=== PATIENT | male | born 1955 | race African-American/Black ===

== ENCOUNTER 2017-05-18 22:03 | Observation (INO) | payer OTHER ==
[~2017-05-18] VITALS: Ht 185.4 cm; Wt 90.0 kg
[2017-05-18 22:04] VITALS: BP 153/74; PULSE 79; RESP 16; TEMP 98; O2SAT 99
[2017-05-18] MEDS ORDERED: ASPIRIN 81 MG CHEW TAB PO ONE (22:45)
[2017-05-18] MEDS ORDERED: SODIUM CHLORIDE 0.9% FLUSH 10 ML FLUSH IVF PRN (22:45)
[2017-05-18] MEDS ORDERED: SODIUM CHLORID 0.9% 500 ML INJ 500 ML IV ONE (22:45)
[2017-05-18] MEDS ORDERED: MORPHINE SULFATE 2 MG/ML INJ IV PUSH ONE (22:45)
--- NOTE | 2017-05-18 22:46 | PD ---
HPI Chief Complaint: Chest Pain Time Seen by Provider: 22:43 Travel History International Travel<30 days: No Contact w/Intl Traveler<30days: No Traveled to known affect area: No History of Present Illness HPI 61-year-old Afro-[place]azi male normally seen by the [place], presents the emergency department via POV with substernal chest pain and tightness which started roughly 2 hours prior to arrival. Patient states he takes baby aspirin daily, and has had chest pain in the past but denies cardiac issues. Patient states this occurred while at rest watching the football [employer] afternoon. He states is continued and currently as a 6 out of 10 pain. He denies nausea, vomiting, or back pain. He denies diaphoresis. Patient states he recently moved here to the [facility] from [place] several months ago. He has no known drug allergies. [facility] Past Medical History Medical History: Denies Significant Hx ?: Not Past Surgical History Abdominal Surgery: Yes (HERNIA SURGERY ) Other Surgery: Yes (KNEE SURGERY ) Social History Alcohol Use: No Tobacco Use: No Substance Use: No Allergies-Medications (Allergen,Severity, Reaction): Coded Allergies: No Known Allergies (Verified Allergy, Unknown, 05/18/17) Reported Meds & Prescriptions Reported Meds & Active Scripts Active No Active Prescriptions or Reported Medications Review of Systems Except as stated in HPI: all other systems reviewed are Neg General / Constitutional: No: Fever, Chills Eyes: No: Visual changes HENT: No: Headaches Cardiovascular: Positive: Chest Pain or Discomfort, Other (chest tightness), No : Palpitations, Irregular Rhythm, Tachycardia, Diaphoresis, Syncope, Dyspnea on exertion, Varicosities, Edema Respiratory: No: Cough, Shortness of Breath, Wheezing Gastrointestinal: No: Nausea, Vomiting, Diarrhea, Abdominal Pain Genitourinary: No: Dysuria Musculoskeletal: No: Pain Skin: No Rash Neurologic: No: Weakness Psychiatric: No: Depression Endocrine: No: Polydipsia Hematologic/Lymphatic: No: Easy Bruising Physical Exam Narrative GENERAL: The patient appears mildly anxious. SKIN: Warm and dry. Normal color. Normal turgor. No diaphoresis HEAD: Atraumatic. Normocephalic. EYES: Pupils equal and round. No scleral icterus. No injection or drainage. ENT: No nasal bleeding or discharge. Mucous membranes pink and moist. Pharynx is clear. Airway is patent. NECK: Trachea midline. No JVD. Supple and nontender. CARDIOVASCULAR: Regular rate and rhythm. No murmurs gallops or rubs appreciated. RESPIRATORY: No accessory muscle use. Clear to auscultation. Breath sounds equal bilaterally. GASTROINTESTINAL: Abdomen soft, non-tender, nondistended. Hepatic and splenic margins not palpable. MUSCULOSKELETAL: Extremities without clubbing, cyanosis, or edema. No obvious deformities. NEUROLOGICAL: Awake and alert. No obvious cranial nerve deficits. Motor grossly within normal limits. Five out of 5 muscle strength in the arms and legs. Normal speech. PSYCHIATRIC: Appropriate mood and affect; insight and judgment normal. Data Data Last Documented VS Vital Signs Date Time Temp Pulse Resp B/P (MAP) Pulse Ox O2 Delivery O2 Flow Rate FiO2 05/18/17 22:04 98.0 79 16 153/74 (100) 99 Room Air Orders Orders Electrocardiogram (05/18/17 22:43) Ckmb (Isoenzyme) Profile (05/18/17 22:43) Complete Blood Count With Diff (05/18/17 22:43) Comprehensive Metabolic Panel (05/18/17 22:43) Magnesium (Mg) (05/18/17 22:43) Prothrombin Time / Inr (Pt) (05/18/17 22:43) Act Partial Throm Time (Ptt) (05/18/17 22:43) Troponin I (05/18/17 22:43) Chest, Single Ap (05/18/17 22:43) Ecg Monitoring (05/18/17 22:43) Bilateral Bp Monitoring (05/18/17 22:43) Iv Access Insert/Monitor (05/18/17 22:43) Oximetry (05/18/17 22:43) Oxygen Administration (05/18/17 22:43) Aspirin Chew (Aspirin Chew) (05/18/17 22:45) Sodium Chloride 0.9% Flush (Ns Flush) (05/18/17 22:45) Nitroglycerin Sl (Nitrostat Sl) (05/18/17 22:45) Sodium Chlorid 0.9% 500 Ml Inj (Ns 500 M (05/18/17 22:45) Morphine Inj (Morphine Inj) (05/18/17 22:45) CKMB (05/18/17 23:00) CKMB% (05/18/17 23:00) Admit Order (Ed Use Only) (05/19/17 00:49) Labs Laboratory Tests Test 05/18/17 23:00 White Blood Count 10.0 TH/MM3 Red Blood Count 4.23 MIL/MM3 Hemoglobin 13.5 GM/DL Hematocrit 39.3 % Mean Corpuscular Volume 93.0 FL Mean Corpuscular Hemoglobin 31.9 PG Mean Corpuscular Hemoglobin Concent 34.3 % Red Cell Distribution Width 12.1 % Platelet Count 246 TH/MM3 Mean Platelet Volume 8.1 FL Neutrophils (%) (Auto) 63.3 % Lymphocytes (%) (Auto) 24.7 % Monocytes (%) (Auto) 8.1 % Eosinophils (%) (Auto) 3.2 % Basophils (%) (Auto) 0.7 % Neutrophils # (Auto) 6.3 TH/MM3 Lymphocytes # (Auto) 2.5 TH/MM3 Monocytes # (Auto) 0.8 TH/MM3 Eosinophils # (Auto) 0.3 TH/MM3 Basophils # (Auto) 0.1 TH/MM3 CBC Comment DIFF FINAL Differential Comment Prothrombin Time 10.3 SEC Prothromb Time International Ratio 1.0 RATIO Activated Partial Thromboplast Time 26.2 SEC Blood Urea Nitrogen 12 MG/DL Creatinine 1.04 MG/DL Random Glucose 93 MG/DL Total Protein 8.5 GM/DL Albumin 4.1 GM/DL Calcium Level 9.4 MG/DL Magnesium Level 2.2 MG/DL Alkaline Phosphatase 78 U/L Aspartate Amino Transf (AST/SGOT) 28 U/L Alanine Aminotransferase (ALT/SGPT) 41 U/L Total Bilirubin 0.3 MG/DL Sodium Level 139 MEQ/L Potassium Level 4.1 MEQ/L Chloride Level 103 MEQ/L Carbon Dioxide Level 28.8 MEQ/L Anion Gap 7 MEQ/L Estimat Glomerular Filtration Rate 73 ML/MIN Total Creatine Kinase 346 U/L Creatine Kinase MB 2.9 NG/ML Creatine Kinase MB % 0.8 % Troponin I LESS THAN 0.02 NG/ML MDM Medical Decision Making Medical Screen Exam Complete: Yes Emergency Medical Condition: Yes Differential Diagnosis Chest pain. Chest tightness. Cardiac syndrome. Angina. Narrative Course Patient is medically stable at time of exam. EKG shows normal sinus rhythm with flipped T waves in V1 with possible slight ST elevations and V2 and V3. This was reviewed with Dr. Martinez as Dr. Sarkar was putting in in a central line. She felt the ST changes were nonspecific Cardiac protocol is initiated. Labs ordered including CBC, CMP, cardiac panel, coagulation studies. IV access is obtained patient is given a 500 mL normal saline bolus. Patient is given 324 mg chewable aspirin by mouth. Patient is given 2 mg morphine IV as well as nitroglycerin 0.4 mg sublingual 3. Chest x-ray is ordered. 2300 hrs., care of the patient is turned over to Dr. Sarkar, who will determine the final disposition of the patient. Scripts No Active Prescriptions or Reported Meds Condition: Stable Jose Carlos Bennett May 18, 2017 22:46
[2017-05-18] MEDS: NITROGLYCERIN 0.4 MG SL 25 TABS/BTL SL SCH ×2 (22:50→22:55)
--- NOTE | 2017-05-18 22:58 | RADRPT ---
EXAM DATE/TIME: 05/18/2017 22:47 [facility] COMPARISON: No previous studies available for comparison. INDICATIONS : Left sided chest pain for one day. MEDICAL HISTORY : None. SURGICAL HISTORY : None. ENCOUNTER: Initial ACUITY: 1 day PAIN SCORE: 6/10 LOCATION: Left chest FINDINGS: A single view of the chest demonstrates the lungs to be symmetrically aerated without evidence of mas s, infiltrate or effusion. The cardiomediastinal contours are unremarkable. Osseous structures are intact. CONCLUSION: No evidence of acute cardiopulmonary disease. Samuel Geiger MD on May 18, 2017 at 22:55 Board Certified Radiologist. This report was verified electronically.
--- NOTE | 2017-05-18 23:02 | PD ---
Data Data Last Documented VS Vital Signs Date Time Temp Pulse Resp B/P (MAP) Pulse Ox O2 Delivery O2 Flow Rate FiO2 05/18/17 22:04 98.0 79 16 153/74 (100) 99 Room Air Orders Orders Electrocardiogram (05/18/17 22:43) Ckmb (Isoenzyme) Profile (05/18/17 22:43) Complete Blood Count With Diff (05/18/17 22:43) Comprehensive Metabolic Panel (05/18/17 22:43) Magnesium (Mg) (05/18/17 22:43) Prothrombin Time / Inr (Pt) (05/18/17 22:43) Act Partial Throm Time (Ptt) (05/18/17 22:43) Troponin I (05/18/17 22:43) Chest, Single Ap (05/18/17 22:43) Ecg Monitoring (05/18/17 22:43) Bilateral Bp Monitoring (05/18/17 22:43) Iv Access Insert/Monitor (05/18/17 22:43) Oximetry (05/18/17 22:43) Oxygen Administration (05/18/17 22:43) Aspirin Chew (Aspirin Chew) (05/18/17 22:45) Sodium Chloride 0.9% Flush (Ns Flush) (05/18/17 22:45) Nitroglycerin Sl (Nitrostat Sl) (05/18/17 22:45) Sodium Chlorid 0.9% 500 Ml Inj (Ns 500 M (05/18/17 22:45) Morphine Inj (Morphine Inj) (05/18/17 22:45) CKMB (05/18/17 23:00) CKMB% (05/18/17 23:00) Admit Order (Ed Use Only) (05/19/17 00:49) Labs Laboratory Tests Test 05/18/17 23:00 White Blood Count 10.0 TH/MM3 Red Blood Count 4.23 MIL/MM3 Hemoglobin 13.5 GM/DL Hematocrit 39.3 % Mean Corpuscular Volume 93.0 FL Mean Corpuscular Hemoglobin 31.9 PG Mean Corpuscular Hemoglobin Concent 34.3 % Red Cell Distribution Width 12.1 % Platelet Count 246 TH/MM3 Mean Platelet Volume 8.1 FL Neutrophils (%) (Auto) 63.3 % Lymphocytes (%) (Auto) 24.7 % Monocytes (%) (Auto) 8.1 % Eosinophils (%) (Auto) 3.2 % Basophils (%) (Auto) 0.7 % Neutrophils # (Auto) 6.3 TH/MM3 Lymphocytes # (Auto) 2.5 TH/MM3 Monocytes # (Auto) 0.8 TH/MM3 Eosinophils # (Auto) 0.3 TH/MM3 Basophils # (Auto) 0.1 TH/MM3 CBC Comment DIFF FINAL Differential Comment Prothrombin Time 10.3 SEC Prothromb Time International Ratio 1.0 RATIO Activated Partial Thromboplast Time 26.2 SEC Blood Urea Nitrogen 12 MG/DL Creatinine 1.04 MG/DL Random Glucose 93 MG/DL Total Protein 8.5 GM/DL Albumin 4.1 GM/DL Calcium Level 9.4 MG/DL Magnesium Level 2.2 MG/DL Alkaline Phosphatase 78 U/L Aspartate Amino Transf (AST/SGOT) 28 U/L Alanine Aminotransferase (ALT/SGPT) 41 U/L Total Bilirubin 0.3 MG/DL Sodium Level 139 MEQ/L Potassium Level 4.1 MEQ/L Chloride Level 103 MEQ/L Carbon Dioxide Level 28.8 MEQ/L Anion Gap 7 MEQ/L Estimat Glomerular Filtration Rate 73 ML/MIN Total Creatine Kinase 346 U/L Creatine Kinase MB 2.9 NG/ML Creatine Kinase MB % 0.8 % Troponin I LESS THAN 0.02 NG/ML [facility] Medical Record Reviewed: Yes Supervised Visit with GILDA: No Interpretation(s) Last Impressions Chest X-Ray 05/18/17 2243 Signed Impressions: Service Date/Time: Thursday, May 18, 2017 22:47 - CONCLUSION: No evidence of acute cardiopulmonary disease. Samuel Geiger MD Narrative Course During the course of the patients emergency department visit, the patients history, examination, and differential diagnosis were reviewed with the patient. The patient was placed on a cardiac rehab nurse with oximetry and frequent blood pressure monitoring. The patient had IV access obtained and blood work sent for analysis. The patient's case was checked out to me by Jose Carlos, the physician assistant manager of operations. Please see his complete history and physical. The patient 's case is checked out to me at the conclusion of his shift. The patient presented with reports of chest pain/pressure. The patient had an EKG done on arrival that shows a sinus rhythm heart rate of 68, QRS duration is 95 ms, QTC 373 ms, no acute ST segment elevation is noted. T waves are inverted in V1. J- point elevation is noted in lead V2. No reciprocal ST segment depression to suggest an acute infarct. The patient was initially provided Zofran 4 mg IV, morphine 2 mg IV for pain, aspirin 324 milligrams, nitroglycerin sublingual every 5 minutes 3 when necessary chest pain. The patients laboratory studies were reviewed and remarkable for a CBC that is unremarkable, CMP is remarkable for a GFR 73, CPK 346, MB percent 0.8, troponin I less than 0.02, PT 10.3, PTT 26.2. Radiology studies were reviewed and remarkable for a chest x-ray that shows no acute cardiopulmonary disease. The patient was agreeable with the plan to proceed with admission to the chest pain center for rule out serial cardiac enzyme protocol followed by stress testing. The patients results were discussed with the patient, including the plan of care. I explained that further testing and/ or monitoring is indicated based on the patients history, examination, and/ or laboratory findings. Therefore, I recommended admission for additional evaluation. The patient expressed understanding and was agreeable with this plan. The patient was admitted to the hospital in stable condition and sent to a bed under the care of the chest pain center. Diagnosis Primary Impression: Chest pain, rule out acute myocardial infarction Admitting Information Admitting Physician Requests: Observation Scripts No Active Prescriptions or Reported Meds Condition: Stable Anna Sarkar MD May 18, 2017 23:02
[2017-05-18 23:15] LABS: AUTOMATED NEUTROPHIL # 6.3 TH/MM3 (1.8-7.7); BASOPHIL # 0.1 TH/MM3 (0-0.2); BASOPHIL % 0.7 % (0.0-2.0); EOSINOPHIL # 0.3 TH/MM3 (0-0.4); EOSINOPHIL % 3.2 % (0.0-4.0); HEMATOCRIT 39.3 % (39.0-51.0); HEMOGLOBIN 13.5 GM/DL (13.0-17.0); LYMPH % 24.7 % (9.0-44.0); LYMPHOCYTE # 2.5 TH/MM3 (1.0-4.8); MEAN CORPUSCULAR HEMOGLOBIN 31.9 PG (27.0-34.0); MEAN CORPUSCULAR HGB CONC 34.3 % (32.0-36.0); MEAN PLATELET VOLUME 8.1 FL (7.0-11.0); MONO % 8.1 % (0.0-8.0); MONOCYTE # 0.8 TH/MM3 (0-0.9); NEUT % 63.3 % (16.0-70.0); PLATELET COUNT 246 TH/MM3 (150-450); RED BLOOD COUNT 4.23 MIL/MM3 (4.50-5.90); RED CELL DISTRIBUTION WIDTH 12.1 % (11.6-17.2)
[2017-05-18 23:16] LABS: PROTHROMBIN TIME - PATIENT 10.3 SEC (9.8-11.6)
[2017-05-18 23:24] LABS: ALT (GPT) 41 U/L (12-78)
[2017-05-18 23:28] LABS: ALKALINE PHOSPHATASE 78 U/L (45-117); TOTAL BILIRUBIN ADULT 0.3 MG/DL (0.2-1.0); TOTAL PROTEIN 8.5 GM/DL (6.4-8.2); TROPONIN I LESS THAN 0.02 NG/ML (0.02-0.05)
[2017-05-18 23:29] LABS: ALBUMIN 4.1 GM/DL (3.4-5.0); AST (GOT) 28 U/L (15-37); BICARBONATE 28.8 MEQ/L (21.0-32.0); BLOOD UREA NITROGEN 12 MG/DL (7-18); CALCIUM 9.4 MG/DL (8.5-10.1); CHLORIDE 103 MEQ/L (98-107); CREATININE 1.04 MG/DL (0.60-1.30); GLOMERULAR FILTRATION RATE 73 ML/MIN (>89); GLUCOSE,RANDOM 93 MG/DL (74-106); MAGNESIUM 2.2 MG/DL (1.5-2.5); SODIUM (NA) 139 MEQ/L (136-145)
[2017-05-19] MEDS: NITROGLYCERIN 0.4 MG SL 25 TABS/BTL SL SCH (00:21)
[2017-05-19] MEDS ORDERED: ONDANSETRON HCL 4 MG/2 ML VIAL IV PUSH PRN (01:45)
[2017-05-19] MEDS ORDERED: ACETAMINOPHEN 500 MG CPLT PO PRN (01:45)
[2017-05-19] MEDS ORDERED: SODIUM CHLORIDE 0.9% FLUSH 10 ML FLUSH IV FLUSH PRN (01:45)
[2017-05-19 02:03] VITALS: BP 125/59; PULSE 67; RESP 18; O2SAT 99
[2017-05-19 03:10] LABS: TROPONIN I LESS THAN 0.02 NG/ML (0.02-0.05)
[2017-05-19 06:04] LABS: TROPONIN I LESS THAN 0.02 NG/ML (0.02-0.05)
[2017-05-19 06:30] VITALS: BP 137/63; PULSE 68; RESP 18; TEMP 98.1; O2SAT 98
[2017-05-19 06:31] VITALS: O2SAT 100
[2017-05-19 06:43] VITALS: BP 126/72; PULSE 73; RESP 18; O2SAT 100
[2017-05-19] MEDS ORDERED: MORPHINE SULFATE 2 MG/ML INJ IV PUSH ONE (08:00)
[2017-05-19] MEDS ORDERED: NITROGLYCERIN 0.4 MG SL 25 TABS/BTL SL PRN (08:45)
[2017-05-19] MEDS ORDERED: SODIUM CHLORIDE 0.9% FLUSH 10 ML FLUSH IV FLUSH SCH (09:00)
[2017-05-19] MEDS ORDERED: ASPIRIN 325 MG TAB PO SCH (09:00)
[2017-05-19 09:49] VITALS: BP 110/88; PULSE 83; RESP 16; O2SAT 99
--- NOTE | 2017-05-19 10:07 | HHI.HP ---
HPI Primary Care Physician [facility] Chief Complaint Chest pain History of Present Illness 61-year-old male without significant past medical history presents to emergency room for further evaluation of chest tightness. Onset yesterday afternoon while watching football. Location substernal. Characterized as tightness. Radiation to left arm, noting left arm to be "sore." Severity mild. Duration constant. Associated symptoms nausea. Denied vomiting, shortness breath, or dyspnea. No known precipitating or relieving factors. No recent injury or trauma. Denies similar pain in the past, however endorses sharp chest pain in the past. Seen and evaluated during each of these episodes with both times being non cardiac related. Recently moved from [place], [place] to [place]. Review of Systems General: No fatigue,weakness, fever, chills, or recent illness change in appetite. Has been his general state of health. HEENT: No CABAN, no vision changes, no nasal congestion or drainage, no dysphasia CV: Continues to have chest tightness as stated above. RESP: No SOB, cough, wheeze, or recent URI. GI: No nausea, vomiting, bowel changes : No dysuria, urgency, frequency EXT: No lower leg edema, no paraesthesias MS: No discomfort, change in ROM, injury, or trauma. NEURO: No difficulty with balance, LOC, motor/sensory deficits PSYCH: No anxiety, depression SKIN: No rashes, no concerning lesions Past Family Social History Allergies: Coded Allergies: No Known Allergies (Verified Allergy, Unknown, 05/18/17) Past Medical History Chronic back and bilateral knee pain Past Surgical History Hernia surgery, knee surgery Reported Medications Aspirin 81 mg daily Active Ordered Medications Current Medications Medications (Trade) Dose Ordered Sig/Loretta Route Start Time Stop Time Status Last Admin (NS Flush) 2 ml UNSCH PRN IV FLUSH 05/19/17 01:45 (NS Flush) 2 ml BID IV FLUSH 05/19/17 09:00 05/19/17 08:00 (Tylenol) 500 mg Q4H PRN PO 05/19/17 01:45 (Zofran Inj) 4 mg Q6H PRN IV PUSH 05/19/17 01:45 (Nitrostat Sl) 0.4 mg Q5M PRN SL 05/19/17 08:45 (Aspirin) 325 mg DAILY PO 05/19/17 09:00 05/19/17 09:48 Social History No known coronary artery disease, diabetes, hypertension, or hyperlipidemia. Lifelong nonsmoker. Denies any alcohol or illegal drug use. Disable . Past cardiac testing None Physical Exam Vital Signs Vital Signs Date Time Temp Pulse Resp B/P (MAP) Pulse Ox O2 Delivery O2 Flow Rate FiO2 05/19/17 09:49 83 16 110/88 (95) 99 05/19/17 06:43 73 18 126/72 (90) 100 Room Air 05/19/17 06:31 100 Room Air 05/19/17 06:31 98 Nasal Cannula 2.00 05/19/17 06:30 98.1 68 18 137/63 (87) 98 Room Air 05/19/17 02:03 67 18 125/59 (81) 99 Room Air 05/18/17 22:04 98.0 79 16 153/74 (100) 99 Room Air Physical Exam GENERAL: Alert WN, WD, NAD, pleasant, Sana male HEAD: NC, AT CV: RRR, without murmur, rub, gallop, no JVD, S1-S2 no S3-S4. Chest wall nontender with palpation. RESP: Clear lungs throughout bilateral, no crackles, wheeze, rhonchi, symmetrical chest rise, nonlabored, able to speak in full sentences ABD: Soft, NT, ND, no masses, positive bowel tones EXT: Pulses +24, no dependent edema MS: Normal tone 4 extremities, nontender, no obvious deformities, full range of motion NEURO: CN II through CN XII grossly intact, motor strength 5/5 PSYCH: A+O 3, pleasant affect, appropriate speech, mood, insight and judgment SKIN: Normal turgor, normal texture, no lesions, no rashes Laboratory Laboratory Tests Test 05/18/17 23:00 05/19/17 02:24 05/19/17 05:10 White Blood Count 10.0 Red Blood Count 4.23 Hemoglobin 13.5 Hematocrit 39.3 Mean Corpuscular Volume 93.0 Mean Corpuscular Hemoglobin 31.9 Mean Corpuscular Hemoglobin Concent 34.3 Red Cell Distribution Width 12.1 Platelet Count 246 Mean Platelet Volume 8.1 Neutrophils (%) (Auto) 63.3 Lymphocytes (%) (Auto) 24.7 Monocytes (%) (Auto) 8.1 Eosinophils (%) (Auto) 3.2 Basophils (%) (Auto) 0.7 Neutrophils # (Auto) 6.3 Lymphocytes # (Auto) 2.5 Monocytes # (Auto) 0.8 Eosinophils # (Auto) 0.3 Basophils # (Auto) 0.1 CBC Comment DIFF FINAL Differential Comment Prothrombin Time 10.3 Prothromb Time International Ratio 1.0 Activated Partial Thromboplast Time 26.2 Blood Urea Nitrogen 12 Creatinine 1.04 Random Glucose 93 Total Protein 8.5 Albumin 4.1 Calcium Level 9.4 Magnesium Level 2.2 Alkaline Phosphatase 78 Aspartate Amino Transf (AST/SGOT) 28 Alanine Aminotransferase (ALT/SGPT) 41 Total Bilirubin 0.3 Sodium Level 139 Potassium Level 4.1 Chloride Level 103 Carbon Dioxide Level 28.8 Anion Gap 7 Estimat Glomerular Filtration Rate 73 Total Creatine Kinase 346 300 283 Creatine Kinase MB 2.9 2.7 2.6 Creatine Kinase MB % 0.8 Troponin I LESS THAN 0.02 LESS THAN 0.02 LESS THAN 0.02 Result Diagram: 05/18/17229905/18/172299 Imaging Last 48 hours Impressions Chest X-Ray 05/18/172242 Signed Impressions: Service Date/Time: Thursday, May 18, 2017 22:47 - CONCLUSION: No evidence of acute cardiopulmonary disease. Samuel Geiger MD Course EKG NSR, normal axis, J point elevation V2 and minimal in V3, may represent early repolarization, otherwise no st t segment changes. Caprini VTE Risk Assessment Caprini VTE Risk Assessment: No/Low Risk (score <= 1) Caprini Risk Assessment Model Point Value = 1 Point Value = 2 Point Value = 3 Point Value = 5 Age 41-60 Minor surgery BMI > 25 kg/m2 Swollen legs Varicose veins or History of unexplained or recurrent spontaneous Oral contraceptives or hormone replacement Sepsis (< 1 month) Serious lung disease, including pneumonia (< 1 month) Abnormal pulmonary function Acute myocardial infarction Congestive heart failure (< 1 month) History of inflammatory bowel disease Medical patient at bed rest Age 61-74 Arthroscopic surgery Major open surgery (> 45 min) Laparoscopic surgery (> 45 min) Malignancy Confined to bed (> 72 hours) Immobilizing plaster cast Central venous access Age >= 75 History of VTE Family history of VTE Factor V Leiden Prothrombin [id number] Lupus anticoagulant Anticardiolipin antibodies Elevated serum homocysteine Heparin-induced thrombocytopenia Other congenital or acquired thrombophilia Stroke (< 1 month) Elective arthroplasty Hip, pelvis, or leg fracture Acute spinal cord injury (< 1 month) Prophylaxis Regimen Total Risk Factor Score Risk Level Prophylaxis Regimen 0-1 Low Early ambulation 2 Moderate Order ONE of the following: *Sequential Compression Device (SCD) *Heparin 5000 units SQ BID 3-4 Higher Order ONE of the following medications: *Heparin 5000 units SQ TID *Enoxaparin/Lovenox 40 mg SQ daily (WT < 150 kg, CrCl > 30 mL/min) *Enoxaparin/Lovenox 30 mg SQ daily (WT < 150 kg, CrCl > 10-29 mL/min) *Enoxaparin/Lovenox 30 mg SQ BID (WT < 150 kg, CrCl > 30 mL/min) AND/OR *Sequential Compression Device (SCD) 5 or more Highest Order ONE of the following medications: *Heparin 5000 units SQ TID (Preferred with Epidurals) *Enoxaparin/Lovenox 40 mg SQ daily (WT < 150 kg, CrCl > 30 mL/min) *Enoxaparin/Lovenox 30 mg SQ daily (WT < 150 kg, CrCl > 10-29 mL/min) *Enoxaparin/Lovenox 30 mg SQ BID (WT < 150 kg, CrCl > 30 mL/min) AND *Sequential Compression Device (SCD) Assessment and Plan Assessment and Plan #1 Atypical chest pain-admitted to chest pain center. Ruled out with 3 sets of EKG, cardiac enzymes, and monitored overnight. Seen and evaluated by Dr. Manfred Samuel. Proceed with Lexiscan. If cardiac testing unremarkable, plans to discharge home with follow up with his PCP. Patient is agreeable to plan of care. Zuri Vega May 19, 2017 10:07
[2017-05-19] MEDS ORDERED: REGADENOSON INJ 0.4 MG/5 ML SYR ONE (12:16)
--- NOTE | 2017-05-19 14:46 | RADRPT ---
EXAM DATE/TIME: 05/19/2017 11:47 [facility] COMPARISON: CHEST SINGLE AP, May 18, 2017, 22:47. INDICATIONS : Substernal chest pain. Angina. DOSE: 27.2 mCi Tc99m Myoview at stress. 8.8 mCi Tc99m Myoview at rest. 0.4 mg Lexiscan STRESS SYMPTOMS: Dyspnea and stomach pressure. EJECTION FRACTION: 63% MEDICAL HISTORY : None SURGICAL HISTORY : Inguinal hernia repair. ENCOUNTER: Initial ACUITY: 1 day PAIN SCALE: 8/10 LOCATION: Substernal chest TECHNIQUE: The patient underwent pharmacologic stress with infusion of prescribed dose. Continuous ECG tracing was monitored during stress. Gated SPECT imaging was performed after stress and conventional SPECT i maging was performed at rest. The examination was performed on a SPECT/CT scanner, both attenuation and non-corrected datasets were reviewed. FINDINGS: DISTRIBUTION: The maximum perfused segment at stress is in the anterior wall. PERFUSION STUDY: No fixed or reversible perfusion defect is identified. Left ventricular cavity appears within normal for size. GATED STUDY: There is intact wall motion and thickening without hypokinetic or dyskinetic segments. CONCLUSION: 1. No fixed or reversible perfusion defect is identified. 2. Normal left ventricle wall motion and ejection fraction. RISK CATEGORY: Low (<1% Annual Mortality Rate) Samuel Melara MD on May 19, 2017 at 14:32 Board Certified Radiologist. This report was verified electronically.
--- NOTE | 2017-05-19 14:50 | HHI.DCPOC ---
Discharge Care Plan Diagnosis: (1) Atypical chest pain Goals to Promote Your Health * To prevent worsening of your condition and complications * To maintain your health at the optimal level Directions to Meet Your Goals Take your medications as prescribed Follow your dietary instruction Follow activity as directed Keep your appointments as scheduled Take your immunizations and boosters as scheduled If your symptoms worsen call your PCP, if no PCP go to Urgent Care Center or Emergency Room Smoking is Dangerous to Your Health. Avoid second hand smoke Call the 24-hour hour crisis hotline for domestic abuse at Zuri Vega May 19, 2017 14:50
--- NOTE | 2017-05-19 14:57 | EKG ---
Date Performed: 05/19/2017 Time Performed: 08:48:26 PTAGE: 61 years EKG: Sinus rhythm NORMAL ECG PREVIOUS TRACING : 05/19/2017 06.26 Since previous tracing, no significant change noted DOCTOR: Manfred Samuel Interpretating Date/Time 05/19/2017 14:55:29
--- NOTE | 2017-05-19 14:58 | EKG ---
Date Performed: 05/19/2017 Time Performed: 06:26:42 PTAGE: 61 years EKG: Sinus rhythm NORMAL ECG PREVIOUS TRACING : 05/19/2017 05.08 \spt DOCTOR: Manfred Samuel Interpretating Date/Time 05/19/2017 14:57:11
--- NOTE | 2017-05-19 14:59 | EKG ---
Date Performed: 05/19/2017 Time Performed: 05:08:40 PTAGE: 61 years EKG: Sinus rhythm POSSIBLE LEFT ATRIAL ENLARGEMENT BORDERLINE ECG PREVIOUS TRACING : 05/19/2017 02.15 Since previous tracing, no significant change noted DOCTOR: Manfred Samuel Interpretating Date/Time 05/21/2017 07:42:58
--- NOTE | 2017-05-19 15:01 | EKG ---
Date Performed: 05/19/2017 Time Performed: 02:15:49 PTAGE: 61 years EKG: Sinus rhythm BORDERLINE ECG PREVIOUS TRACING : 05/18/2017 22.46 Since previous tracing, no significant change noted DOCTOR: Manfred Samuel Interpretating Date/Time 05/19/2017 14:59:13
--- NOTE | 2017-05-19 15:12 | EKG ---
Date Performed: 05/18/2017 Time Performed: 22:46:16 PTAGE: 61 years EKG: Sinus rhythm POSSIBLE LEFT ATRIAL ENLARGEMENT BORDERLINE ECG NO PREVIOUS TRACING DOCTOR: Manfred Samuel Interpretating Date/Time 05/19/2017 15:10:58
[2017-05-19 15:27] VITALS: BP 134/59; PULSE 82; RESP 18; TEMP 97.7; O2SAT 99
--- NOTE | 2017-05-19 15:28 | TR ---
Date Performed: 05/19/2017 Time Performed: 12:22:16 DOCTOR: Manfred Samuel DRUG LIST: CLINICAL HISTORY: REASON FOR TEST: REASON FOR ENDING: OBSERVATION: CONCLUSION: Lexiscan stress test was performed under standard four minute protocol. Radionuclid e was injected one minute prior to ending the test. No electrocardiographic abormalities were present to suggest ischemia. Nuclear imaging and interpretation are pending. COMMENTS:
== END 2017-05-19 18:01 | disposition home or self-care (01) ==
LOC: NEPE 22:03 → NEDA 05-19 00:50 → NEDH 05-19 07:16 → NEPGCP 05-19 10:44
PROVIDERS: ADMIT Internal Medicine Interventional Cardiology; ATTEND Internal Medicine Interventional Cardiology
DX: R07.89 Other chest pain (principal); R06.00 Dyspnea, unspecified; R11.0 Nausea; I20.9 Angina pectoris, unspecified; M54.9 Dorsalgia, unspecified; M25.561 Pain in right knee; M25.562 Pain in left knee; G89.29 Other chronic pain; Z79.82 Long term (current) use of aspirin
CPT/HCPCS: 71045; 78452; 80053; 82550; 82552; 83735; 84484; 85025; 85610; 85730; 93005; 93017; 96374; 96376; 99285; A9502; G0378; J2270; J2785; J7040

== ENCOUNTER 2018-04-21 09:57 | Observation (INO) ==
--- NOTE | 2018-04-21 10:22 | ED ---
HPI General Chief Complaint: Chest Pain Stated Complaint: Cardiac Time Seen by Provider: 04/21/18 10:00 Source: patient Mode of arrival: EMS Limitations: no limitations History of Present Illness HPI narrative: 62-year-old male presents by ambulance with intermittent chest pain. He was given 1 nitroglycerin in route and is currently pain-free. He states that he has had heart blockages before but never had to have a stent. He states his prior workup is here but he does not know what it is. He presents by ambulance and was called a cardiac alert given mild elevation in his anterior leads. He denies other concurrent complaints. Pain is currently resolved. Quality was pressure-like. He denies associated symptoms. [facility] and does not have a rn tele. Related Data Home Medications Medication Instructions Recorded Confirmed Unable to Obtain Home Meds 04/21/18 04/21/18 Allergies Allergy/AdvReac Type Severity Reaction Status Date / Time No Known Allergies Allergy Verified 04/21/18 10:05 Review of Systems ROS: all other systems reviewed are negative [facility] Medical History Medical History Anxiety (Acute) Chest pain (Acute) Depression (Acute) Surgical History Surgical History Hx of cardiac cath (Acute) Social History Social History Substance History: No History of Abuse Smoking Status: Never smoker How Often Do You Have a Drink Containing Alcohol: Never Recent Travel in [facility] within the Last 8 Weeks: No Recent Out of Country Travel within the Last 8 Weeks: No Immunization History Tetanus Immunization: Unsure Exam Narrative Exam Narrative: GENERAL: 62-year-old male in no apparent distress SKIN: Focused skin assessment warm/dry. HEAD: Atraumatic. Normocephalic. EYES: Pupils equal and round. No scleral icterus. No injection or drainage. ENT: No nasal bleeding or discharge. Mucous membranes pink and moist. NECK: Trachea midline. No JVD. CARDIOVASCULAR: Regular rate and rhythm. No murmur appreciated. RESPIRATORY: No accessory muscle use. Clear to auscultation. Breath sounds equal bilaterally. GASTROINTESTINAL: Abdomen soft, non-tender, nondistended. MUSCULOSKELETAL: No obvious deformities. No clubbing. No cyanosis. NEUROLOGICAL: Awake and alert. Motor grossly within normal limits. Normal speech. PSYCHIATRIC: Appropriate mood and affect; insight and judgment normal. Course Reevaluation(s) Reevaluation #1: patient updated and agrees to admit Consultations Consultation #1: Dr. Carver's agrees no STEMI alert with current EKG and pain-free , more repolarization like Consultation #2: dr aponte states to admit to [facility] Initial Documented Vital Signs Temperature 97.7 F 04/21/18 09:59 Pulse Rate 73 04/21/18 09:59 Respiratory Rate 18 04/21/18 09:59 Blood Pressure 140/75 04/21/18 09:59 Pulse Oximetry 100 04/21/18 09:59 Last Documented Vital Signs Temperature 97.7 F 04/21/18 09:59 Pulse Rate 63 04/21/18 12:01 Respiratory Rate 18 04/21/18 12:01 Blood Pressure 136/68 04/21/18 12:01 Pulse Oximetry 99 04/21/18 12:01 Medical Decision Making [facility] Narrative Medical decision making narrative: We will check blood work, EKG, chest x-ray and reevaluate. Currently pain-free Medical Screen Exam Complete: Yes Emergency Medical Condition: Yes Differential Diagnosis Differential Diagnosis: MO, gastritis, musculoskeletal, pneumothorax Lab Data Lab results reviewed: Yes I reviewed the patient's lab results. Result diagrams: 04/21/18 10:05 04/21/18 10:05 Lab Results 04/21/18 04/21/18 04/21/18 Range/Units 10:05 10:05 10:05 WBC 7.8 (4.0-11.0) th/mm3 RBC 4.30 L (4.50-5.90) mil/mm3 Hgb 13.9 (13.0-17.0) gm/dL Hct 40.9 (39.0-51.0) % MCV 95.1 (80.0-100.0) fL MCH 32.3 (27.0-34.0) pg MCHC 34.0 (32.0-36.0) % RDW 12.4 (11.6-17.2) % Plt Count 220 (150-450) th/mm3 MPV 8.3 (7.0-11.0) fL Neut % (Auto) 60.6 (16.0-70.0) % Lymph % (Auto) 26.5 (9.0-44.0) % [place] % (Auto) 8.4 H (0.0-8.0) % Eos % (Auto) 3.7 (0.0-4.0) % Baso % (Auto) 0.8 (0.0-2.0) % Neut # (Auto) 4.7 (1.8-7.7) th/mm3 Lymph # (Auto) 2.1 (1.0-4.8) th/mm3 [place] # (Auto) 0.7 (0.0-0.9) th/mm3 Eos # (Auto) 0.3 (0.0-0.4) th/mm3 Baso # (Auto) 0.1 (0.0-0.2) th/mm3 WBC Differential . Differential Comment Auto diff final PT 16.9 H (9.8-11.6) sec INR 1.7 Ratio APTT 55.7 H (23.4-31.7) sec Sodium (136-145) meq/L Potassium (3.5-5.1) meq/L Chloride (98-107) meq/L Carbon Dioxide (21.0-32.0) meq/L Anion Gap (5-15) meq/L BUN (7-18) mg/dL Creatinine (0.60-1.30) mg/dL Estimated GFR (>89) mL/min Random Glucose (74-106) mg/dL Calcium (8.5-10.1) mg/dL Magnesium (1.5-2.5) mg/dL Total Bilirubin (0.2-1.0) mg/dL AST (15-37) U/L ALT (12-78) U/L Alkaline Phosphatase (45-117) U/L Total Creatine Kinase (39-308) U/L CK-MB (CK-2) (0.5-3.6) ng/mL Troponin I (0.02-0.05) ng/mL B-Natriuretic Peptide 9 (0-100) pg/mL Total Protein (6.4-8.2) g/dL Albumin (3.4-5.0) g/dL 04/21/18 Range/Units 10:05 WBC (4.0-11.0) th/mm3 RBC (4.50-5.90) mil/mm3 Hgb (13.0-17.0) gm/dL Hct (39.0-51.0) % MCV (80.0-100.0) fL MCH (27.0-34.0) pg MCHC (32.0-36.0) % RDW (11.6-17.2) % Plt Count (150-450) th/mm3 MPV (7.0-11.0) fL Neut % (Auto) (16.0-70.0) % Lymph % (Auto) (9.0-44.0) % [place] % (Auto) (0.0-8.0) % Eos % (Auto) (0.0-4.0) % Baso % (Auto) (0.0-2.0) % Neut # (Auto) (1.8-7.7) th/mm3 Lymph # (Auto) (1.0-4.8) th/mm3 [place] # (Auto) (0.0-0.9) th/mm3 Eos # (Auto) (0.0-0.4) th/mm3 Baso # (Auto) (0.0-0.2) th/mm3 WBC Differential Differential Comment PT (9.8-11.6) sec INR Ratio APTT (23.4-31.7) sec Sodium 141 (136-145) meq/L Potassium 4.1 (3.5-5.1) meq/L Chloride 105 (98-107) meq/L Carbon Dioxide 31.7 (21.0-32.0) meq/L Anion Gap 4 L (5-15) meq/L BUN 9 (7-18) mg/dL Creatinine 1.01 (0.60-1.30) mg/dL Estimated GFR Greater than 89 (>89) mL/min Random Glucose 89 (74-106) mg/dL Calcium 8.9 (8.5-10.1) mg/dL Magnesium 2.4 (1.5-2.5) mg/dL Total Bilirubin 0.5 (0.2-1.0) mg/dL AST 18 (15-37) U/L ALT 30 (12-78) U/L Alkaline Phosphatase 75 (45-117) U/L Total Creatine Kinase 138 (39-308) U/L CK-MB (CK-2) 1.8 (0.5-3.6) ng/mL Troponin I Less than 0.02 L (0.02-0.05) ng/mL B-Natriuretic Peptide (0-100) pg/mL Total Protein 8.2 (6.4-8.2) g/dL Albumin 4.0 (3.4-5.0) g/dL Imaging Data Attestation: I personally reviewed and interpreted this imaging study as follows : Radiologist's impression: Chest X-Ray 04/21/18 10:01 CONCLUSION: No acute cardiopulmonary abnormality is identified. Discharge Plan Discharge Disposition Patient Disposition: ED Admit(ED Internal Use Only) Discharge Order Discharge Orders: ED Use Only Admit Order (Routine); Ordered 04/21/18 Ordered By: Gege Doty Discharge Details Diagnosis: Chest pain Physicians Team ED Provider: Gege Doty Primary Care Provider: [facility] Attending Provider: Bhakti Caldwell ED Status: Admitted Observation Patient
[2018-04-21 10:37] LABS: Baso # (Auto) 0.1 th/mm3 (0.0-0.2); Baso % (Auto) 0.8 % (0.0-2.0); Eos # (Auto) 0.3 th/mm3 (0.0-0.4); Eos % (Auto) 3.7 % (0.0-4.0); Hematocrit 40.9 % (39.0-51.0); Hemoglobin 13.9 gm/dL (13.0-17.0); Lymph # (Auto) 2.1 th/mm3 (1.0-4.8); Lymph % (Auto) 26.5 % (9.0-44.0); Mean Corpuscular Hemoglobin 32.3 pg (27.0-34.0); Mean Corpuscular Volume 95.1 fL (80.0-100.0); Mean Platelet Volume 8.3 fL (7.0-11.0); Mono # (Auto) 0.7 th/mm3 (0.0-0.9); Mono % (Auto) 8.4 % (0.0-8.0); Neut # (Auto) 4.7 th/mm3 (1.8-7.7); Neut % (Auto) 60.6 % (16.0-70.0); Platelet Count 220 th/mm3 (150-450); Red Cell Distribution Width 12.4 % (11.6-17.2); White Blood Count 7.8 th/mm3 (4.0-11.0)
[2018-04-21 10:43] LABS: Activated Partial Thrombo Time 55.7 sec (23.4-31.7); INR 1.7 Ratio; Prothrombin Time 16.9 sec (9.8-11.6)
[2018-04-21 10:49] LABS: Anion Gap 4 meq/L (5-15); Aspartate Aminotransferase 18 U/L (15-37); Blood Urea Nitrogen 9 mg/dL (7-18); Calcium 8.9 mg/dL (8.5-10.1); Carbon Dioxide 31.7 meq/L (21.0-32.0); Chloride 105 meq/L (98-107); Glomerular Filtration Rate Greater Than 89 mL/min (>89); Glucose,Random 89 mg/dL (74-106); Magnesium 2.4 mg/dL (1.5-2.5); Potassium 4.1 meq/L (3.5-5.1); Sodium 141 meq/L (136-145)
--- NOTE | 2018-04-21 10:49 | XR ---
EXAM DATE: 04/21/2018 10:35 AM EST AGE/SEX: 62 years / Male INDICATIONS: Left side chest pain. CLINICAL DATA: This is the patient's initial encounter. Patient reports that signs and symptoms have been present for 2 days and indicates a pain score of 5/10. MEDICAL/SURGICAL HISTORY: None. None. [place] [facility] [place]. . FINDINGS: Portable AP view of the chest demonstrates a normal-sized cardiac silhouette. No effusion, consolidat ion, or pneumothorax is identified. The bones and soft tissues demonstrate no acute finding. EKG line s overlie the patient. CONCLUSION: No acute cardiopulmonary abnormality is identified. Electronically signed by: Samuel Melara MD Board Certified Radiologist 04/21/2018 10:48 AM EST
[2018-04-21 10:55] LABS: Alanine Aminotransferase 30 U/L (12-78); Alkaline Phosphatase 75 U/L (45-117); Creatine Kinase 138 U/L (39-308); Total Protein 8.2 g/dL (6.4-8.2)
[2018-04-21 11:07] LABS: Creatine Kinase MB 1.8 ng/mL (0.5-3.6)
[2018-04-21] MEDS ORDERED: ALPRAZolam 0.25 MG Tablet PO PRN (14:01)
[2018-04-21] MEDS ORDERED: Acetaminophen 500 MG Tablet PO PRN (14:03)
[2018-04-21 14:04] VITALS: RESP 16
--- NOTE | 2018-04-21 14:11 | P.HPCA ---
History of Present Illness Primary Care Physician: Physician [facility] Chief Complaint: Chest pain History of Present Illness: This is a 62-year-old male with a history of hyperlipidemia, chronic back pain, bilateral knee pain, and depression that presents to ED via EMS from the [place] [facility] with complaint of chest discomfort. States that he developed chest discomfort yesterday that lasted all day long. It is a throbbing pain and left-sided chest. Worse level is a 10 out of 10. Found nothing really to worsen or improve. Currently discomfort is about a 1 out of 10. Patient states the area is very tender. Cannot recall any injury that may have caused this discomfort. He does readily admit to having chronic neck and back issues and has had issues of pain rating down his arm before. Has had cardiac evaluation before. Upon reviewing records he had a chemical stress test here in May of the 2017 that was nonischemic. States he said other stress test before he moved here from [place]. Cannot recall ever having a cardiac catheterization. Nothing to worsen or improve his discomfort. Mild shortness of breath. Denies nausea or diaphoresis. He takes several medications for his above diagnosis he is however he cannot recall the names or doses of them. History of hyperlipidemia, depression, chronic neck pain, chronic back pain, chronic bilateral knee pain. Denies hypertension, diabetes, and CAD. Denies family history of CAD. He is a lifetime non-smoker. Denies alcohol or illicit drug use. He has had hernia repair, prostatectomy, and left knee surgery. - Diagnosis (1) Chest pain (2) Hyperlipidemia (3) Chronic neck and back pain (4) Chronic knee pain (5) Depression Review of Systems General: Patient denies fevers, chills, and recent travel. HEENT: Patient denies headache, sore throat, difficulty swallowing. Cardiovascular: Has the chest discomfort as mentioned above. Denies sensation of heart beating rapidly or irregularly. No syncope. Denies diaphoresis. Respiratory: Mild shortness of breath. Denies inspirational chest discomfort. Denies coughing wheezing or hemoptysis. GI: Patient denies nausea, vomiting, diarrhea, abdominal pain, bloody stools. Musculoskeletal: Chronic neck and back pain. Chronic bilateral knee pain. Patient denies joint edema. Denies calf pain or edema. Neurovascular: Patient denies numbness, tingling, weakness in extremities. Denies headache. Endocrine: Denies polyuria and polydipsia. Hematologic: Denies easy bruising. Skin: Denies rash or itching. PMFSH - History History Provided By: Patient - Medical History Medical History: Medical History (Last Reviewed 04/21/18 @ 10:21 by Gege Doty MD) Anxiety Chest pain Depression - Surgical History Surgical History: Surgical History (Last Reviewed 04/21/18 @ 10:21 by Gege Doty MD) Hx of cardiac cath - Tobacco History Smoking Status: Never smoker - Alcohol History How Often Do You Have a Drink Containing Alcohol: Never - Substance Use History Substance History: No History of Abuse - Travel History Recent Travel in the [place] Within the Last 8 Weeks: No Recent Travel Out of the Country Within the Last 8 Weeks: No - Immunization History Tetanus Immunization: Unsure Medications and Allergies Active Medications: Active Medications Alprazolam (Xanax) 0.25 mg PO Q8H PRN PRN Reason: ANXIETY Aspirin (Aspirin) 325 mg PO DAILY YUVAL Ondansetron HCl (Zofran Inj) 4 mg IV.PUSH Q6H PRN PRN Reason: NAUSEA Pantoprazole Sodium (Protonix) 40 mg PO DAILY YUVAL Sodium Chloride (Ns Flush) 2 ml IV.FLUSH UNSCH PRN PRN Reason: FLUSH AFTER USING IV ACCESS Sodium Chloride (Ns Flush) 2 ml IV.FLUSH BID YUVAL Sodium Chloride (Ns Flush) 2 ml IV.FLUSH PRN PRN PRN Reason: FLUSH AFTER USING IV ACCESS Allergies Allergy/AdvReac Type Severity Reaction Status Date / Time No Known Allergies Allergy Verified 04/21/18 10:05 Home Medications Medication Instructions Recorded Confirmed Type Unable to Obtain Home Meds 04/21/18 04/21/18 History Exam Vital signs: Vital Signs 04/21/18 09:59 04/21/18 10:08 04/21/18 10:09 Temperature 97.7 F Pulse Rate 73 74 73 Respiratory Rate 18 18 Blood Pressure 140/75 148/63 H Pulse Oximetry 100 100 04/21/18 12:01 04/21/18 14:02 Temperature 97.8 F Pulse Rate 63 63 Respiratory Rate 18 16 Blood Pressure 136/68 114/77 Pulse Oximetry 99 99 Intake & Output 04/20/18 04/21/18 04/21/18 18:59 06:59 18:59 Weight 72.575 kg Narrative: GENERAL: This is a well-nourished, well-developed patient, in no apparent distress. Patient speaks in clear complete sentences. Patient is pleasant. HEENT: Head is atraumatic and normocephalic. Neck is supple without lymphadenopathy and trachea is midline. No JVD or carotid bruits. CARDIOVASCULAR: Regular rate and rhythm without murmurs, gallops, or rubs. RESPIRATORY: Clear to auscultation. Breath sounds equal bilaterally. No wheezes , rales, or rhonchi. Chest wall is tender. No use of accessory muscles. GASTROINTESTINAL: Abdomen is nontender, nondistended. Abdomen soft. No obvious pulsatile mass or bruit. No CVA tenderness. Strong femoral pulses bilaterally. Normal bowel sounds in all quadrants. MUSCULOSKELETAL: Patient is moving upper and lower extremities freely. No calf tenderness or edema, no Homans sign. Strong pulses in upper and lower extremities. NEUROLOGICAL: Patient is alert and oriented. Cranial nerves 2-12 are grossly intact. No focal deficits and speech is clear. SKIN: No rash and turgor is normal. Results 04/21/18 10:05 04/21/18 10:05 Cardiac Enzymes 04/21/18 04/21/18 Range/Units 10:05 10:05 AST 18 (15-37) U/L CK-MB (CK-2) 1.8 (0.5-3.6) ng/mL Troponin I Less than 0.02 L (0.02-0.05) ng/mL B-Natriuretic Peptide 9 (0-100) pg/mL Coagulation 04/21/18 04/21/18 Range/Units 10:05 10:05 PT 16.9 H (9.8-11.6) sec APTT 55.7 H (23.4-31.7) sec B-Natriuretic Peptide 9 (0-100) pg/mL CBC 04/21/18 Range/Units 10:05 WBC 7.8 (4.0-11.0) th/mm3 RBC 4.30 L (4.50-5.90) mil/mm3 Hgb 13.9 (13.0-17.0) gm/dL Hct 40.9 (39.0-51.0) % Plt Count 220 (150-450) th/mm3 Neut # (Auto) 4.7 (1.8-7.7) th/mm3 Lymph # (Auto) 2.1 (1.0-4.8) th/mm3 [place] # (Auto) 0.7 (0.0-0.9) th/mm3 Eos # (Auto) 0.3 (0.0-0.4) th/mm3 Baso # (Auto) 0.1 (0.0-0.2) th/mm3 Comprehensive Metabolic Panel 04/21/18 Range/Units 10:05 Sodium 141 (136-145) meq/L Potassium 4.1 (3.5-5.1) meq/L Chloride 105 (98-107) meq/L Carbon Dioxide 31.7 (21.0-32.0) meq/L BUN 9 (7-18) mg/dL Creatinine 1.01 (0.60-1.30) mg/dL Calcium 8.9 (8.5-10.1) mg/dL AST 18 (15-37) U/L ALT 30 (12-78) U/L Alkaline Phosphatase 75 (45-117) U/L Total Protein 8.2 (6.4-8.2) g/dL Albumin 4.0 (3.4-5.0) g/dL Intake and Output 04/20/18 04/21/18 04/21/18 22:59 06:59 14:59 Other: Weight 72.575 kg Patient Weight 04/22/18 06:59 Weight 72.575 kg - Imaging and Cardiology Imaging: Impressions Chest X-Ray 04/21/18 10:01 CONCLUSION: No acute cardiopulmonary abnormality is identified. EKG interpretations - EKG EKG shows: sinus rhythm (Initial EKG is sinus rhythm with pattern of early repolarization which is similar to a prior EKG from May this year.) Caprini VTE Risk Assessment Caprini VTE Risk Assessment: Moderate/High Risk (score >= 2) Caprini Risk Assessment Model: Point Value = 1 Point Value = 2 Point Value = 3 Point Value = 5 Age 41-60 Minor surgery BMI > 25 kg/m2 Swollen legs Varicose veins or History of unexplained or recurrent spontaneous Oral contraceptives or hormone replacement Sepsis (< 1 month) Serious lung disease, including pneumonia (< 1 month) Abnormal pulmonary function Acute myocardial infarction Congestive heart failure (< 1 month) History of inflammatory bowel disease Medical patient at bed rest Age 61-74 Arthroscopic surgery Major open surgery (> 45 min) Laparoscopic surgery (> 45 min) Malignancy Confined to bed (> 72 hours) Immobilizing plaster cast Central venous access Age >= 75 History of VTE Family history of VTE Factor V Leiden Prothrombin [id number] Lupus anticoagulant Anticardiolipin antibodies Elevated serum homocysteine Heparin-induced thrombocytopenia Other congenital or acquired thrombophilia Stroke (< 1 month) Elective arthroplasty Hip, pelvis, or leg fracture Acute spinal cord injury (< 1 month) Prophylaxis Regimen: Total Risk Factor Score Risk Level Prophylaxis Regimen 0-1 Low Early ambulation 2 Moderate Order ONE of the following: *Sequential Compression Device (SCD) *Heparin 5000 units SQ BID 3-4 Higher Order ONE of the following medications: *Heparin 5000 units SQ TID *Enoxaparin/Lovenox 40 mg SQ daily (WT < 150 kg, CrCl > 30 mL/min) *Enoxaparin/Lovenox 30 mg SQ daily (WT < 150 kg, CrCl > 10-29 mL/min) *Enoxaparin/Lovenox 30 mg SQ BID (WT < 150 kg, CrCl > 30 mL/min) AND/OR *Sequential Compression Device (SCD) 5 or more Highest Order ONE of the following medications: *Heparin 5000 units SQ TID (Preferred with Epidurals) *Enoxaparin/Lovenox 40 mg SQ daily (WT < 150 kg, CrCl > 30 mL/min) *Enoxaparin/Lovenox 30 mg SQ daily (WT < 150 kg, CrCl > 10-29 mL/min) *Enoxaparin/Lovenox 30 mg SQ BID (WT < 150 kg, CrCl > 30 mL/min) AND *Sequential Compression Device (SCD) Assessment and Plan - Assessment (1) Chest pain Code(s): R07.9 - Chest pain, unspecified Status: Acute (2) Hyperlipidemia Code(s): E78.5 - Hyperlipidemia, unspecified Status: Acute (3) Chronic neck and back pain Code(s): M54.2 - Cervicalgia; M54.9 - Dorsalgia, unspecified; G89.29 - Other chronic pain Status: Acute (4) Chronic knee pain Code(s): M25.569 - Pain in unspecified knee; G89.29 - Other chronic pain Status: Acute (5) Depression Code(s): F32.9 - Major depressive disorder, single episode, unspecified Status : Acute - Plan * Chest pain: Symptoms seem atypical. May be musculoskeletal in nature. He will be seen by Dr. Caldwell of cardiology in the chest pain center. He will have serial cardiac enzymes and EKGs for ruling out purposes. If he rules out, he would have a Lexiscan as he states he cannot go on a treadmill any longer with his bad knees. He will be discharged home if his stress test is nonischemic with instructions to follow-up with PCP. Return to ED for interval issues. * Hyperlipidemia: Patient states he takes medication for this but cannot recall the name. He should resume it at discharge. * Depression: Patient states he takes 3 medications for this, he cannot recall the names. He should resume this at discharge. * Chronic neck and back pain: Lortab as needed. Resume his medication at discharge. * Chronic bilateral knee pain: As needed analgesia. Continue his home medications at discharge. Patient is stable at this time. He is agreeable to this plan. (1) Chest pain Qualifiers: Chest pain type: unspecified Qualified Code(s): R07.9 - Chest pain, unspecified
[2018-04-21 14:50] LABS: Creatine Kinase 127 U/L (39-308)
--- NOTE | 2018-04-21 16:42 | ECG ---
Date Performed: 04/21/2018 Time Performed: 10:03:15 PTAGE: 62 years EKG: Sinus rhythm ST ELEVATION, consider anterolateral injury pattern verses Repolarization abnormalities or pericardi tis. Clinical correlation is recommended BORDERLINE ECG PREVIOUS TRACING : 05/19/2017 08.48 DOCTOR: Kiel Kelley Interpretating Date/Time 04/21/2018 16:40:11
[2018-04-21 17:59] LABS: Creatine Kinase 138 U/L (39-308)
[2018-04-22 08:01] VITALS: BP 115/62; PULSE 62; TEMP 97; O2SAT 99
--- NOTE | 2018-04-22 08:14 | P.PNCA ---
Subjective Interval history: Reports chest pain "much better." Precipitating factors moving neck a "certain way." Medications and Allergies Active Medications: Active Medications Acetaminophen (Tylenol) 500 mg PO Q6H PRN PRN Reason: pain scale 1-5 Hydrocodone Bitart/Acetaminophen ([place] 7.5/325) 1 tab PO Q6H PRN PRN Reason: pain scale 6-10 Last Admin: 04/21/18 23:48 Dose: 1 tab Albuterol (Duoneb Neb (Prn)) 1 ampul NEB Q4HR NEB PRN PRN Reason: SHORTNESS OF BREATH/WHEEZING Alprazolam (Xanax) 0.25 mg PO Q8H PRN PRN Reason: ANXIETY Last Admin: 04/22/18 03:26 Dose: 0.25 mg Aspirin (Aspirin) 325 mg PO DAILY [facility] Clonidine HCl (Catapres) 0.1 mg PO Q6H PRN PRN Reason: SBP >165 OR DBP > 110 Ondansetron HCl (Zofran Inj) 4 mg IV.PUSH Q6H PRN PRN Reason: NAUSEA Pantoprazole Sodium (Protonix) 40 mg PO DAILY [facility] Last Admin: 04/21/18 16:45 Dose: 40 mg Sodium Chloride (Ns Flush) 2 ml IV.FLUSH BID [facility] Last Admin: 04/21/18 20:20 Dose: 2 ml Sodium Chloride (Ns Flush) 2 ml IV.FLUSH PRN PRN PRN Reason: FLUSH AFTER USING IV ACCESS Allergies Allergy/AdvReac Type Severity Reaction Status Date / Time No Known Allergies Allergy Verified 04/21/18 10:05 Home Medications Medication Instructions Recorded Confirmed Type Unable to Obtain Home Meds 04/21/18 04/21/18 History Physical Exam Vital signs: Vital Signs 04/21/18 09:59 04/21/18 10:08 04/21/18 10:09 Temperature 97.7 F Pulse Rate 73 74 73 Respiratory Rate 18 18 Blood Pressure 140/75 148/63 H Pulse Oximetry 100 100 04/21/18 12:01 04/21/18 14:02 04/21/18 16:00 Temperature 97.8 F 95.9 F L Pulse Rate 63 63 69 Respiratory Rate 18 16 16 Blood Pressure 136/68 114/77 115/59 L Pulse Oximetry 99 99 98 04/21/18 20:00 04/21/18 23:59 12/19/18 04:00 Temperature 97.7 F 97.8 F 97.8 F Pulse Rate 69 71 66 Respiratory Rate 16 16 16 Blood Pressure 117/70 116/67 112/65 Pulse Oximetry 98 100 97 04/22/18 07:15 04/22/18 07:57 Temperature 97.0 F L Pulse Rate 60 62 Respiratory Rate 16 Blood Pressure 115/62 Pulse Oximetry 99 Intake & Output 04/21/18 04/22/18 04/22/18 18:59 06:59 18:59 Weight 81.8 kg Other: # Voids 2 Date of Last Bowel Movement 04/20/18 Weight On Admission 81.8 kg Narrative: Thin, tall -[place] male easily awakens from sleep. No acute distress. - Constitutional no acute distress - Routine HEENT Exam Head: Present: normocephalic, atraumatic - Routine Respiratory Exam Present: CTA bilaterally - Routine Cardiovascular Exam Present: RRR. Absent: murmur, gallop, rubs - Routine Skin Exam Present: intact, warm - Routine Neurological Exam Present: oriented X3 Results 04/21/18 10:05 04/21/18 10:05 Cardiac Enzymes 04/21/18 04/21/18 04/21/18 Range/Units 10:05 10:05 13:25 AST 18 (15-37) U/L CK-MB (CK-2) 1.8 (0.5-3.6) ng/mL Troponin I Less than 0.02 L Less than 0.02 L (0.02-0.05) ng/mL B-Natriuretic Peptide 9 (0-100) pg/mL 04/21/18 Range/Units 17:00 AST (15-37) U/L CK-MB (CK-2) (0.5-3.6) ng/mL Troponin I Less than 0.02 L (0.02-0.05) ng/mL B-Natriuretic Peptide (0-100) pg/mL Coagulation 04/21/18 04/21/18 Range/Units 10:05 10:05 PT 16.9 H (9.8-11.6) sec APTT 55.7 H (23.4-31.7) sec B-Natriuretic Peptide 9 (0-100) pg/mL CBC 04/21/18 Range/Units 10:05 WBC 7.8 (4.0-11.0) th/mm3 RBC 4.30 L (4.50-5.90) mil/mm3 Hgb 13.9 (13.0-17.0) gm/dL Hct 40.9 (39.0-51.0) % Plt Count 220 (150-450) th/mm3 Neut # (Auto) 4.7 (1.8-7.7) th/mm3 Lymph # (Auto) 2.1 (1.0-4.8) th/mm3 [place] # (Auto) 0.7 (0.0-0.9) th/mm3 Eos # (Auto) 0.3 (0.0-0.4) th/mm3 Baso # (Auto) 0.1 (0.0-0.2) th/mm3 Comprehensive Metabolic Panel 04/21/18 Range/Units 10:05 Sodium 141 (136-145) meq/L Potassium 4.1 (3.5-5.1) meq/L Chloride 105 (98-107) meq/L Carbon Dioxide 31.7 (21.0-32.0) meq/L BUN 9 (7-18) mg/dL Creatinine 1.01 (0.60-1.30) mg/dL Calcium 8.9 (8.5-10.1) mg/dL AST 18 (15-37) U/L ALT 30 (12-78) U/L Alkaline Phosphatase 75 (45-117) U/L Total Protein 8.2 (6.4-8.2) g/dL Albumin 4.0 (3.4-5.0) g/dL Intake and Output 04/21/18 04/22/18 04/22/18 22:59 06:59 14:59 Other: # Voids 2 Date of Last Bowel Movement 04/20/18 Weight 81.8 kg Weight On Admission 81.8 kg - Imaging and Cardiology Imaging: Impressions Chest X-Ray 04/21/18 10:01 CONCLUSION: No acute cardiopulmonary abnormality is identified. Assessment and Plan - Assessment (1) Chest pain Code(s): R07.9 - Chest pain, unspecified Status: Acute Plan: ACS ruled out by standard chest pain center protocol. Monitor on telemetry overnight. 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 Proceed with planned Lexiscan this a.m. Patient agreeable to plan of care and verbalizes understanding. If Lexiscan unremarkable, plans to discharge home with follow-up with [facility]. (2) Hyperlipidemia Code(s): E78.5 - Hyperlipidemia, unspecified Status: Chronic Plan: Continue home medication upon discharge. (3) Chronic neck and back pain Code(s): M54.2 - Cervicalgia; M54.9 - Dorsalgia, unspecified; G89.29 - Other chronic pain Status: Chronic Plan: [facility]. (4) Chronic knee pain Code(s): M25.569 - Pain in unspecified knee; G89.29 - Other chronic pain Status: Chronic Plan: [facility] (5) Depression Code(s): F32.9 - Major depressive disorder, single episode, unspecified Status : Chronic Plan: Continue home medications upon discharge. He cannot recall name of medications. - Plan * Chest pain: Symptoms seem atypical. May be musculoskeletal in nature. He will be seen by Dr. Caldwell of cardiology in the chest pain center. He will have serial cardiac enzymes and EKGs for ruling out purposes. If he rules out, he would have a Lexiscan as he states he cannot go on a treadmill any longer with his bad knees. He will be discharged home if his stress test is nonischemic with instructions to follow-up with PCP. Return to ED for interval issues. * Hyperlipidemia: Patient states he takes medication for this but cannot recall the name. He should resume it at discharge. * Depression: Patient states he takes 3 medications for this, he cannot recall the names. He should resume this at discharge. * Chronic neck and back pain: Lortab as needed. Resume his medication at discharge. * Chronic bilateral knee pain: As needed analgesia. Continue his home medications at discharge. Patient is stable at this time. He is agreeable to this plan. (1) Chest pain Qualifiers: Chest pain type: unspecified Qualified Code(s): R07.9 - Chest pain, unspecified (2) Hyperlipidemia Qualifiers: Hyperlipidemia type: unspecified Qualified Code(s): E78.5 - Hyperlipidemia, unspecified (5) Depression Qualifiers: Depression Type: unspecified Qualified Code(s): F32.9 - Major depressive disorder, single episode, unspecified
[2018-04-22] MEDS ORDERED: Regadenoson Inj 0.4 MG/5 ML Syringe IV.PUSH ONE (08:57)
[2018-04-22] MEDS ORDERED: Aspirin 325 MG Tablet PO SCH (09:00)
--- NOTE | 2018-04-22 11:01 | NM ---
EXAM DATE: 04/22/2018 10:34 AM EST AGE/SEX: 62 years / Male INDICATIONS:Angina. . Chest pain. CLINICAL DATA: This is the patient's subsequent encounter. Patient reports that signs and symptoms h ave been present for 1 day and indicates a pain score of 7/10. MEDICAL/SURGICAL HISTORY: . Anxiety. . Cardiac catherization. COMPARISON: [facility], MYOCARDIAL PERF PHARM SPECT, 05/19/2017. . DOSE: 8.8 mCi Tc 99m Myoview at rest 25.5 mCi [id number] at stress 0.4 mg Lexiscan STRESS SYMPTOMS: Shortness of breath. EJECTION FRACTION: 52 % TECHNIQUE: The patient underwent pharmacologic stress with infusion of prescribed dose. Continuous ECG tracing was monitored during stress. Gated SPECT imaging was performed after stress and conventi onal SPECT imaging was performed at rest. The examination was performed on a SPECT/CT scanner, both attenuation and non-corrected datasets were reviewed. FINDINGS: Distribution: The maximum perfused segment at stress is in the septal wall. Perfusion Study: The pattern of perfusion at stress is within normal limits. Gated Study: There are intact wall motion and wall thickening without hypokinetic or dyskinetic segm ents. The ejection fraction is calculated at 52%. RISK CATEGORY: Low (<1% Annual Motality Rate) CONCLUSION: 1. Negative examination. Electronically signed by: Tyler Capone MD Board Certified Radiologist 04/22/2018 10:59 AM EST
--- NOTE | 2018-04-22 15:05 | ECG ---
Date Performed: 04/21/2018 Time Performed: 17:03:50 PTAGE: 62 years EKG: Sinus rhythm PREVIOUS TRACING : 04/21/2018 13.31 Since previous tracing, no significant change noted DOCTOR: Manfred Samuel Interpretating Date/Time 04/22/2018 15:03:49
--- NOTE | 2018-04-22 15:06 | ECG ---
Date Performed: 04/21/2018 Time Performed: 13:31:48 PTAGE: 62 years EKG: Sinus rhythm ST ELEVATION, PROBABLY EARLY REPOLARIZATION BORDERLINE ECG PREVIOUS TRACING : 04/21/2018 10.03 Since previous tracing, no significant change noted DOCTOR: Manfred Samuel Interpretating Date/Time 04/22/2018 15:04:18
--- NOTE | 2018-04-22 15:10 | TR ---
Date Performed: 04/22/2018 Time Performed: 09:24:49 DOCTOR: Manfred Samuel DRUG LIST: CLINICAL HISTORY: REASON FOR TEST: REASON FOR ENDING: OBSERVATION: CONCLUSION: COMMENTS: Lexiscan stress test was performed under standard four minute protocol. Radionuclide was injected one minute prior to ending the test. No electrocardiographic abormalities were present t o suggest ischemia. Nuclear imaging and interpretation are pending.
== END 2018-04-22 13:00 | disposition home or self-care (01) ==
LOC: NEPC 09:57 → NEDH 09:57 → NEPHCDU 13:43
PROVIDERS: ADMIT Internal Medicine Interventional Cardiology; ATTEND Internal Medicine Interventional Cardiology
DX: M25.561 Pain in right knee; M54.2 Cervicalgia; G89.29 Other chronic pain; E11.9 Type 2 diabetes mellitus without complications; R07.9 Chest pain, unspecified; R06.02 Shortness of breath; M54.9 Dorsalgia, unspecified; M25.562 Pain in left knee; F32.9 Major depressive disorder, single episode, unspecified; I25.10 Atherosclerotic heart disease of native coronary artery without angina pectoris; E78.5 Hyperlipidemia, unspecified; F41.9 Anxiety disorder, unspecified